=== PATIENT | female | born 1945 | race Caucasian/White ===

== ENCOUNTER 2017-06-27 14:04 | Emergency (ER) | payer SELFPAY ==
[~2017-06-27] VITALS: Ht 160 cm; Wt 60.0 kg
[2017-06-27 14:16] VITALS: BP 111/67; PULSE 78; RESP 18; TEMP 98; O2SAT 96
== END 2017-06-27 14:30 | disposition left against medical advice (07) ==
LOC: NEPE 14:04
DX: R07.9 Chest pain, unspecified (principal); Z53.21 Procedure and treatment not carried out due to patient leaving prior to being seen by health care provider
CPT/HCPCS: 99281